=== PATIENT | male | born 1975 | race American Indian/Alaskan Native ===

== ENCOUNTER 2016-11-18 18:00 | Emergency (ER) | payer BC ==
[2016-11-18 19:06] LABS: Basophils % (Auto) 0.8 % (0.0-1.8); Eosinophils % (Auto) 2.5 % (0.0-4.3); Hematocrit 40.6 % (35.5-45.6); Mean Corpuscular HGB Conc 32 % (32-34); Mean Corpuscular Volume 77 fl (84-94); Platelet Count 201 K/mm3 (140-440); Red Cell Distribution Width 13.6 % (13.2-15.2); White Blood Count 6.5 K/mm3 (4.5-11.0)
[2016-11-18 19:16] LABS: Mean Corpuscular Hemoglobin 25 pg (28-32)
[2016-11-18 19:19] LABS: Bilirubin,Urine NEG (Negative); Blood,Urine NEG (Negative); Ketones,Urine NEG (Negative); Leukocyte Esterase,Urine NEG (Negative); Mucus,Urine FEW /HPF; Nitrite,Urine NEG (Negative); Protein,Urine <15 mg/dL mg/dL (Negative)
[2016-11-18 19:26] LABS: Alanine Aminotransferase 16 units/L (7-56); Albumin 4.1 g/dL (3.9-5); Albumin/Globulin Ratio 1.1 %; Alkaline Phosphatase 73 units/L (35-129); Anion Gap 16 mmol/L; BUN/Creatinine Ratio 9.28; Blood Urea Nitrogen 13 mg/dL (9-20); Carbon Dioxide 27 mmol/L (22-30); Chloride 100.7 mmol/L (98-107); Glucose 90 mg/dL (75-100); Lipase 29 units/L (13-60); Sodium 140 mmol/L (137-145); Total Protein 7.7 g/dL (6.3-8.2)
[2016-11-18] MEDS ORDERED: PEPCID PO ONE (22:03)
[2016-11-18] MEDS ORDERED: BENTYL IM ONE (22:03)
[2016-11-18] MEDS ORDERED: CARAFATE PO ONE (22:03)
[2016-11-18] MEDS ORDERED: ALUM-MAG HYDROX-SIMETH 200-200-20MG/5ML PO ONE (22:03)
--- NOTE | 2016-11-18 22:04 | Emergency Department Report ---
ED General Adult HPI - General Chief complaint: Abdominal Pain Stated complaint: ABD PAIN/BODY PAINS Time Seen by Provider: 11/18/16 21:52 Source: patient, family Mode of arrival: Ambulatory Limitations: No Limitations - History of Present Illness Initial comments: This is a 41-year-old male. He is previously unknown to me. His primary care doctor is Dr. Navneet Powers. He has a past medical history of hypertension. No history of abdominal surgeries. The patient presents to the ER with a complaint of left lower quadrant pain for one month. The pain does not radiate anywhere. There is no nausea, vomiting, diarrhea, irritative or obstructive urinary symptoms and there is no testicular pain. There is no hematemesis of bright red blood per rectum. This does not have any exacerbating or relieving factors. The patient also complains of diffuse myalgias, bilateral arms, legs, neck and back. This has been going on for months to years. This is not having exacerbating or relieving factors. There is no redness, pus or streaking, there is no recent travel within the past 2 months. Patient and family report going to multiple outpatient primary care physicians and specialists, and has been told that the patient's diagnostics workup had been negative in the past. Comes are not worsened today. There are no exacerbating or relieving factors. -: Gradual Location: back, abdomen, left, right, upper extremity, lower extremity Quality: aching Consistency: constant Improves with: none Worsens with: none Associated Symptoms: malaise, weakness. denies: chest pain, cough, diaphoresis , fever/chills, headaches - Related Data Previous Rx's Medication Instructions Recorded Last Taken Type Dicyclomine [Bentyl] 10 mg PO QID PRN #20 capsule 11/18/16 Unknown Rx Ondansetron [Zofran Odt] 4 mg PO QID PRN #20 tab.rapdis 11/18/16 Unknown Rx diphenhydrAMINE [Benadryl] 50 mg PO Q8HR PRN #20 capsule 11/18/16 Unknown Rx Allergies Allergy/AdvReac Type Severity Reaction Status Date / Time No Known Allergies Allergy Unverified 11/18/16 18:12 ED Review of Systems ROS: Stated complaint: ABD PAIN/BODY PAINS Other details as noted in HPI Constitutional: denies: fever Eyes: denies: vision change ENT: denies: epistaxis Respiratory: denies: cough, shortness of breath Cardiovascular: denies: chest pain Gastrointestinal: abdominal pain Genitourinary: denies: dysuria Musculoskeletal: back pain, arthralgia, myalgia Skin: denies: lesions Neurological: weakness Psychiatric: anxiety ED Past Medical Hx - Past Medical History Previous Medical History?: Yes Hx Hypertension: Yes - Surgical History Past Surgical History?: No - Social History Smoking Status: Never Smoker Substance Use Type: None - Medications Home Medications: Home Medications Medication Instructions Recorded Confirmed Last Taken Type Dicyclomine [Bentyl] 10 mg PO QID PRN #20 capsule 11/18/16 Unknown Rx Ondansetron [Zofran Odt] 4 mg PO QID PRN #20 tab.rapdis 11/18/16 Unknown Rx diphenhydrAMINE [Benadryl] 50 mg PO Q8HR PRN #20 capsule 11/18/16 Unknown Rx ED Physical Exam - General Limitations: No Limitations General appearance: alert, in no apparent distress - Head Head exam: Present: atraumatic, normocephalic - Eye Eye exam: Present: normal appearance, EOMI. Absent: nystagmus - ENT ENT exam: Present: normal exam, normal orophraynx, mucous membranes moist, normal external ear exam - Neck Neck exam: Present: normal inspection, full ROM. Absent: tenderness, meningismus - Respiratory Respiratory exam: Present: normal lung sounds bilaterally. Absent: respiratory distress, wheezes, rales, rhonchi, stridor, chest wall tenderness, accessory muscle use, decreased breath sounds, prolonged expiratory - Cardiovascular Cardiovascular Exam: Present: regular rate, normal rhythm, normal heart sounds. Absent: bradycardia, tachycardia, irregular rhythm, systolic murmur, diastolic murmur, rubs, gallop - GI/Abdominal GI/Abdominal exam: Present: soft, normal bowel sounds. Absent: distended, tenderness, guarding, rebound, rigid, pulsatile mass - Rectal Rectal exam: Present: deferred - Extremities Exam Extremities exam: Present: normal inspection, full ROM, normal capillary refill , other (the compartments are soft. There is full range of motion in the large major joints in the bilateral upper and lower extremities. There is no redness , pus or streaking, there is no crepitus, there are no obvious effusions noted) . Absent: tenderness, pedal edema, joint swelling, calf tenderness - Back Exam Back exam: Present: normal inspection, full ROM. Absent: tenderness, CVA tenderness (R), paraspinal tenderness, vertebral tenderness - Neurological Exam Neurological exam: Present: alert, oriented X3, normal gait, other (Extraocular movements intact. Tongue midline. No facial droop. Facial sensation intact to light touch in the V1, V2, V3 distribution bilaterally. 5 and 5 strength in 4 extremities.. Sensation is intact to light touch in 4 extremities.). Absent : motor sensory deficit - Psychiatric Psychiatric exam: Present: normal affect, normal mood - Skin Skin exam: Present: warm, dry, intact, normal color. Absent: rash ED Course Vital Signs 11/18/16 11/18/16 11/18/16 18:12 22:57 23:13 Temperature 98.4 F Pulse Rate 64 47 L Respiratory 18 16 18 Rate Blood Pressure 164/100 Blood Pressure 152/91 [Left] O2 Sat by Pulse 99 100 100 Oximetry ED Medical Decision Making - Lab Data Result diagrams: 11/18/16 18:55 11/18/16 18:55 Vital Signs 11/18/16 18:12 Temperature 98.4 F Pulse Rate 64 Respiratory 18 Rate Blood Pressure 164/100 O2 Sat by Pulse 99 Oximetry Lab Results 11/18/16 11/18/16 11/18/16 Range/Units 18:30 18:55 18:55 WBC 6.5 (4.5-11.0) K/mm3 RBC 5.30 H (3.65-5.03) M/mm3 Hgb 13.0 (11.8-15.2) gm/dl Hct 40.6 (35.5-45.6) % MCV 77 L (84-94) fl MCH 25 L (28-32) pg MCHC 32 (32-34) % RDW 13.6 (13.2-15.2) % Plt Count 201 (140-440) K/mm3 Lymph % (Auto) 38.2 H (13.4-35.0) % [place] % (Auto) 8.7 H (0.0-7.3) % Eos % (Auto) 2.5 (0.0-4.3) % Baso % (Auto) 0.8 (0.0-1.8) % Lymph # 2.5 (1.2-5.4) K/mm3 [place] # 0.6 (0.0-0.8) K/mm3 Eos # 0.2 (0.0-0.4) K/mm3 Baso # 0.0 (0.0-0.1) K/mm3 Seg Neutrophils % 49.8 (40.0-70.0) % Seg Neutrophils # 3.2 (1.8-7.7) K/mm3 Sodium 140 (137-145) mmol/L Potassium 4.0 (3.6-5.0) mmol/L Chloride 100.7 (98-107) mmol/L Carbon Dioxide 27 (22-30) mmol/L Anion Gap 16 mmol/L BUN 13 (9-20) mg/dL Creatinine 1.4 (0.8-1.5) mg/dL Estimated GFR > 60 ml/min BUN/Creatinine Ratio 9.28 % Glucose 90 (75-100) mg/dL Calcium 9.0 (8.4-10.2) mg/dL Phosphorus (2.5-4.5) mg/dL Magnesium (1.7-2.3) mg/dL Total Bilirubin 0.50 (0.1-1.2) mg/dL AST 19 (5-40) units/L ALT 16 (7-56) units/L Alkaline Phosphatase 73 (35-129) units/L Total Creatine Kinase (55-170) units/L Total Protein 7.7 (6.3-8.2) g/dL Albumin 4.1 (3.9-5) g/dL Albumin/Globulin Ratio 1.1 % Lipase 29 (13-60) units/L Urine Color Yellow (Yellow) Urine Turbidity Clear (Clear) Urine pH 5.0 (5.0-7.0) Ur Specific [place] 1.018 (1.003-1.030) Urine Protein <15 mg/dl (Negative) mg/dL Urine Glucose (UA) Neg (Negative) mg/dL Urine Ketones Neg (Negative) mg/dL Urine Blood Neg (Negative) Urine Nitrite Neg (Negative) Urine Bilirubin Neg (Negative) Urine Urobilinogen 2.0 (<2.0) mg/dL Ur Leukocyte Esterase Neg (Negative) Urine WBC (Auto) 1.0 (0.0-6.0) /HPF Urine RBC (Auto) 1.0 (0.0-6.0) /HPF Urine Mucus Few /HPF // Range/Units 22:04 WBC (4.5-11.0) K/mm3 RBC (3.65-5.03) M/mm3 Hgb (11.8-15.2) gm/dl Hct (35.5-45.6) % MCV (84-94) fl MCH (28-32) pg MCHC (32-34) % RDW (13.2-15.2) % Plt Count (140-440) K/mm3 Lymph % (Auto) (13.4-35.0) % [place] % (Auto) (0.0-7.3) % Eos % (Auto) (0.0-4.3) % Baso % (Auto) (0.0-1.8) % Lymph # (1.2-5.4) K/mm3 [place] # (0.0-0.8) K/mm3 Eos # (0.0-0.4) K/mm3 Baso # (0.0-0.1) K/mm3 Seg Neutrophils % (40.0-70.0) % Seg Neutrophils # (1.8-7.7) K/mm3 Sodium (137-145) mmol/L Potassium (3.6-5.0) mmol/L Chloride (98-107) mmol/L Carbon Dioxide (22-30) mmol/L Anion Gap mmol/L BUN (9-20) mg/dL Creatinine (0.8-1.5) mg/dL Estimated GFR ml/min BUN/Creatinine Ratio % Glucose (75-100) mg/dL Calcium (8.4-10.2) mg/dL Phosphorus 4.40 (2.5-4.5) mg/dL Magnesium 2.00 (1.7-2.3) mg/dL Total Bilirubin (0.1-1.2) mg/dL AST (5-40) units/L ALT (7-56) units/L Alkaline Phosphatase (35-129) units/L Total Creatine Kinase 338 H (55-170) units/L Total Protein (6.3-8.2) g/dL Albumin (3.9-5) g/dL Albumin/Globulin Ratio % Lipase (13-60) units/L Urine Color (Yellow) Urine Turbidity (Clear) Urine pH (5.0-7.0) Ur Specific [place] (1.003-1.030) Urine Protein (Negative) mg/dL Urine Glucose (UA) (Negative) mg/dL Urine Ketones (Negative) mg/dL Urine Blood (Negative) Urine Nitrite (Negative) Urine Bilirubin (Negative) Urine Urobilinogen (<2.0) mg/dL Ur Leukocyte Esterase (Negative) Urine WBC (Auto) (0.0-6.0) /HPF Urine RBC (Auto) (0.0-6.0) /HPF Urine Mucus /HPF - Medical Decision Making Differential diagnosis: Fibromyalgia, polymyositis, dermatomyositis, hepatitis, Lyme disease, constipation, irritable bowel syndrome, inflammatory bowel disease , functional abdominal pain Assessment and plan: 41-year-old male with abdominal pain and nonspecific myalgias. The symptoms have been going on for weeks to months. He is afebrile , with reassuring vital signs, with the exception of hypertension. His abdominal exam is completely benign, and based on his current history and physical, I do not believe the patient requires emergent advanced imaging at this time. I specifically discussed this with the patient and his , who is a nurse in this department, and I informed him that I did not feel the patient requires CT scan or emergent imaging at this time, especially given the risks of cancer, radiation, malignancy. Patient have verbalized understanding. I did instruct him to follow up with outpatient planer operator / grader and senior coldfusion developer. I believe his workup for his nonspecific myalgias does not represent an emergent conditions and has been present for months, he does not appear to be clinically decompensated, and I will defer further workup and evaluation to outpatient primary care doctor or senior coldfusion developer. Similar logic applies to his nonspecific abdominal pain. He was able to tolerate liquid feeds , and felt somewhat improved after symptomatic therapy. Critical care attestation.: If time is entered above; I have spent that time in minutes in the direct care of this critically ill patient, excluding procedure time. ED Disposition Clinical Impression: Myalgia, Abdominal pain Disposition: DC-01 TO HOME OR SELFCARE Is pt being admited?: No Does the pt Need Aspirin: No Condition: Stable Instructions: Musculoskeletal Pain (ED) Additional Instructions: Take the pain medication, nausea medication as directed. Follow up with an outpatient planer operator / grader within the next month. Follow up with an outpatient primary care doctor or senior coldfusion developer within the next month. [facility] as a patient service hotline that can be contacted to obtain expedited follow-up: [phone] ([phone]) Please return to the ER right away with new pain, worsened pain, migration of pain, fevers, chills, confusion, intractable nausea or vomiting, inability to tolerate liquid feeds. Please note that blood pressure was elevated, and this should be followed up by primary care doctor within the recommended timeframe. Long-term complications of hypertension and elevated blood pressure includes stroke, heart attack, disability, , paralysis, loss of quality of life. Prescriptions: Dicyclomine [Bentyl] 10 mg PO QID PRN #20 capsule PRN Reason: Pain diphenhydrAMINE [Benadryl] 50 mg PO Q8HR PRN #20 capsule PRN Reason: Allergic Reaction Ondansetron [Zofran Odt] 4 mg PO QID PRN #20 tab.rapdis PRN Reason: Nausea Referrals: PRIMARY CARE, [Referring] - 3-5 Days NAVNEET POWERS MD [Primary Care Provider] - 3-5 Days CRISTELA ESTRADA MD [Staff Physician] - 3-5 Days Forms: Work/School Release Form(ED)
[2016-11-18 22:29] LABS: Phosphorous 4.4 mg/dL (2.5-4.5)
[2016-11-18 22:57] VITALS: BP 152/91
== END 2016-11-18 23:45 | disposition home or self-care (01) ==
LOC: ED 18:00
DX: R10.32 Left lower quadrant pain (principal); M79.1 Myalgia; M79.605 Pain in left leg; M79.604 Pain in right leg; M79.642 Pain in left hand; M79.641 Pain in right hand; I10 Essential (primary) hypertension
CPT/HCPCS: 36415; 80053; 81001; 82550; 83690; 83735; 84100; 85025; 96372; 99283; J0500

== ENCOUNTER 2017-04-06 08:02 | Emergency (ER) | payer OTHER, BC ==
[2017-04-06 08:23] VITALS: BP 150/94
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
[2017-04-06] MEDS ORDERED: ZOFRAN ONE (09:18)
[2017-04-06] MEDS ORDERED: MORPHINE ONE (09:19)
[2017-04-06] MEDS ORDERED: MORPHINE IV ONE (09:21)
[2017-04-06] MEDS ORDERED: ZOFRAN IV ONE (09:22)
[2017-04-06 09:48] LABS: Bacteria,Urine 1+ /HPF (Negative); Bilirubin,Urine NEG (Negative); Blood,Urine NEG (Negative); Color,Urine Straw (Yellow); Nitrite,Urine NEG (Negative); Protein,Urine <15 mg/dL mg/dL (Negative); Urobilinogen,Urine < 2.0 mg/dL (<2.0); WBC,Urine < 1.0 /HPF (0.0-6.0)
[2017-04-06 09:58] LABS: Basophils % (Auto) 0.4 % (0.0-1.8); Eosinophils # (Auto) 0.1 K/mm3 (0.0-0.4); Eosinophils % (Auto) 2.2 % (0.0-4.3); Lymphocytes # (Auto) 1.8 K/mm3 (1.2-5.4); Lymphocytes % (Auto) 37.6 % (13.4-35.0); Mean Corpuscular HGB Conc 31 % (32-34); Mean Corpuscular Volume 78 fl (84-94); Monocytes # (Auto) 0.6 K/mm3 (0.0-0.8); Platelet Count 215 K/mm3 (140-440); Red Blood Count 5.04 M/mm3 (3.65-5.03); Red Cell Distribution Width 13.1 % (13.2-15.2)
[2017-04-06 09:59] LABS: Hematocrit 39.3 % (35.5-45.6); Hemoglobin 12.1 gm/dl (11.8-15.2); Mean Corpuscular Hemoglobin 24 pg (28-32)
[2017-04-06 10:16] LABS: Alanine Aminotransferase 19 units/L (7-56); Albumin 3.9 g/dL (3.9-5); BUN/Creatinine Ratio 8; Blood Urea Nitrogen 9 mg/dL (9-20); Calcium 9.2 mg/dL (8.4-10.2); Hemolysis Index 8
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
== END 2017-04-06 13:20 | disposition home or self-care (01) ==
LOC: ED 08:02
DX: S13.9XXA Sprain of joints and ligaments of unspecified parts of neck, initial encounter (principal); R10.9 Unspecified abdominal pain; S09.90XA Unspecified injury of head, initial encounter; I10 Essential (primary) hypertension; V89.2XXA Person injured in unspecified motor-vehicle accident, traffic, initial encounter; Y93.89 Activity, other specified; Y92.89 Other specified places as the place of occurrence of the external cause; Y99.8 Other external cause status
CPT/HCPCS: 36415; 70450; 72125; 74177; 80053; 81001; 85025; 96374; 96375; 99284; J2270; J2405; Q9967

== ENCOUNTER 2017-12-16 17:33 | Emergency (ER) | payer BC ==
[2017-12-16] MEDS ORDERED: MORPHINE IV ONE (18:22)
[2017-12-16] MEDS ORDERED: ZOFRAN IV ONE (18:22)
--- NOTE | 2017-12-16 18:29 | Emergency Department Report ---
ED Abdominal Pain HPI - General Chief Complaint: Abdominal Pain Stated Complaint: ABD PAIN/NAUSEA/VOMITING Time Seen by Provider: 12/16/17 18:14 Source: patient Mode of arrival: Ambulatory Limitations: No Limitations - History of Present Illness Initial Comments: Patient is 42 years old male with no significant past medical history except for hypertension. Patient presented to the ER 1 month history of left upper quadrant and left lower quadrants abdominal pain and left flank pain, on and off , sharp in nature. Patient stated that his pain just got worse in the last few days. Patient denied any fever, nausea or vomiting. Patient stated that he has urinary frequency and hematuria but no dysuria. MD Complaint: abdominal pain Location: LUQ, LLQ, L flank Radiation: none Migration to: no migration Severity: moderate Severity scale (0 -10): 5 Associated Symptoms: denies other symptoms - Related Data Previous Rx's Medication Instructions Recorded Last Taken Type Dicyclomine [Bentyl] 10 mg PO QID PRN #20 capsule 11/18/16 Unknown Rx Ondansetron [Zofran Odt] 4 mg PO QID PRN #20 tab.rapdis 11/18/16 Unknown Rx diphenhydrAMINE [Benadryl] 50 mg PO Q8HR PRN #20 capsule 11/18/16 Unknown Rx Metaxalone [Skelaxin] 800 mg PO TID #30 tablet 04/06/17 Unknown Rx Naproxen [Naprosyn] 500 mg PO BID #14 tablet 04/06/17 Unknown Rx Ciprofloxacin HCl [Ciprofloxacin 500 mg PO Q12H #14 tab 12/16/17 Unknown Rx TAB] Ondansetron [Zofran Odt] 4 mg PO Q8HR PRN #14 tab.rapdis 12/16/17 Unknown Rx amLODIPine [Norvasc] 5 mg PO DAILY #30 tab 12/16/17 Unknown Rx hydroCHLOROthiazide [HCTZ] 25 mg PO QDAY #30 tablet 12/16/17 Unknown Rx traMADol [Ultram 50 MG tab] 50 mg PO Q4HR PRN #14 tablet 12/16/17 Unknown Rx Allergies Allergy/AdvReac Type Severity Reaction Status Date / Time No Known Allergies Allergy Unverified 11/18/16 18:12 ED Review of Systems ROS: Stated complaint: ABD PAIN/NAUSEA/VOMITING Other details as noted in HPI Comment: All other systems reviewed and negative Constitutional: denies: chills, fever Respiratory: denies: cough, orthopnea, shortness of breath, SOB with exertion Cardiovascular: denies: chest pain, palpitations, dyspnea on exertion Endocrine: denies: flushing, intolerance to cold, intolerance to heat Gastrointestinal: abdominal pain. denies: nausea, vomiting, diarrhea, constipation, hematemesis, melena, hematochezia Genitourinary: frequency, hematuria Neurological: denies: headache, weakness, numbness, paresthesias, confusion, abnormal gait ED Past Medical Hx - Past Medical History Hx Hypertension: Yes - Social History Smoking Status: Never Smoker Substance Use Type: None - Medications Home Medications: Home Medications Medication Instructions Recorded Confirmed Last Taken Type Dicyclomine [Bentyl] 10 mg PO QID PRN #20 capsule 11/18/16 Unknown Rx Ondansetron [Zofran Odt] 4 mg PO QID PRN #20 tab.rapdis 11/18/16 Unknown Rx diphenhydrAMINE [Benadryl] 50 mg PO Q8HR PRN #20 capsule 11/18/16 Unknown Rx Metaxalone [Skelaxin] 800 mg PO TID #30 tablet 04/06/17 Unknown Rx Naproxen [Naprosyn] 500 mg PO BID #14 tablet 04/06/17 Unknown Rx Ciprofloxacin HCl [Ciprofloxacin 500 mg PO Q12H #14 tab 12/16/17 Unknown Rx TAB] Ondansetron [Zofran Odt] 4 mg PO Q8HR PRN #14 tab.rapdis 12/16/17 Unknown Rx amLODIPine [Norvasc] 5 mg PO DAILY #30 tab 12/16/17 Unknown Rx hydroCHLOROthiazide [HCTZ] 25 mg PO QDAY #30 tablet 12/16/17 Unknown Rx traMADol [Ultram 50 MG tab] 50 mg PO Q4HR PRN #14 tablet 12/16/17 Unknown Rx ED Physical Exam - General Limitations: No Limitations General appearance: alert, in no apparent distress - Head Head exam: Present: atraumatic, normocephalic, normal inspection - Eye Eye exam: Present: normal appearance, PERRL - ENT ENT exam: Present: normal exam, normal orophraynx, mucous membranes moist - Neck Neck exam: Present: normal inspection, full ROM. Absent: tenderness, meningismus, lymphadenopathy, thyromegaly - Respiratory Respiratory exam: Present: normal lung sounds bilaterally. Absent: respiratory distress, wheezes, rales, rhonchi, stridor, chest wall tenderness, accessory muscle use, decreased breath sounds, prolonged expiratory - Cardiovascular Cardiovascular Exam: Present: regular rate, normal rhythm, normal heart sounds - GI/Abdominal GI/Abdominal exam: Present: soft, tenderness, normal bowel sounds. Absent: distended, guarding, rebound, rigid, diminished bowel sounds, organomegaly, mass , bruit, pulsatile mass, hernia - Extremities Exam Extremities exam: Present: normal inspection, full ROM, normal capillary refill - Back Exam Back exam: Present: normal inspection, full ROM. Absent: CVA tenderness (R), CVA tenderness (L), muscle spasm, paraspinal tenderness, vertebral tenderness, rash noted - Neurological Exam Neurological exam: Present: alert, oriented X3, CN II-XII intact, normal gait, reflexes normal - Skin Skin exam: Present: warm, intact, normal color ED Course Vital Signs 12/16/17 12/16/17 12/16/17 18:04 19:28 20:12 Temperature 99.1 F 98.2 F Pulse Rate 70 63 62 Respiratory 18 14 Rate Blood Pressure 163/102 164/97 Blood Pressure 164/97 [Left] O2 Sat by Pulse 99 98 Oximetry 12/16/17 21:00 Temperature Pulse Rate Respiratory Rate Blood Pressure Blood Pressure 150/95 [Left] O2 Sat by Pulse Oximetry ED Medical Decision Making - Lab Data Result diagrams: 12/16/17 18:31 12/16/17 20:12 - Radiology Data Radiology results: report reviewed Referring Physician: SUSAN MCPHERSON Patient Name: MARCIANO HOOK Date of : 1975 Sex: Male Report Date: 2017-12-16 Report Status: Finalized Findings [facility] [address] [place] [address] Cat Scan Report Signed Patient: MARCIANO HOOK MR#: [id number] : 1975 Acct:[id number] Age/Sex: 42 / M ADM Date: 12/16/17 Loc: ED Attending Dr: Ordering Physician: SUSAN MCPHERSON Date of Service: 12/16/17 Procedure(s): CT abdomen pelvis w con Accession Number(s): [id number] cc: RODRIRODY HairDeidra MCPHERSON FINAL REPORT EXAM: CT ABDOMEN PELVIS W CON HISTORY: Abdominal Pain TECHNIQUE: Following administration of IV contrast axial helical imaging was performed through the abdomen and pelvis with sagittal and coronal reformatted images obtained. Comparison: None FINDINGS: The lung bases are without infiltrate, pneumothorax or pleural fluid collection. There is dependent atelectasis in both lung bases. The heart is enlarged. There is a calcification in the left lobe of the liver. Probable calcified granuloma. The spleen, pancreas and adrenal glands are unremarkable in appearance. The gallbladder is moderately distended and unremarkable in appearance. There is a small nonobstructing stone in the right renal pelvis. There appears to be a small scar in the right renal cortex. The kidneys are otherwise unremarkable. There is no evidence of hydronephrosis nor hydroureter. The bowel is normal caliber. There is colonic diverticulosis without radiographic evidence of diverticulitis. The appendix is normal caliber. There is no evidence of pneumoperitoneum or free fluid. The abdominal aorta is normal caliber. There is atherosclerotic vascular calcification of the large and medium caliber arteries. There is no evidence of pathologic intra-abdominal adenopathy by CT size criteria. The urinary bladder is mildly distended. There is the appearance of increased thickness of the urinary bladder wall. This may be secondary to under distention. The prostate gland appears to be enlarged with maximal axial dimension of 4.7 centimeters. There is a small right inguinal hernia that contains fat. The bony structures are notable for spondylitic change of the lumbar spine. There is a small umbilical hernia that contains fat. IMPRESSION: 1. No evidence of an acute intra-abdominal process. 2. Cardiomegaly. 3. Probable calcified granuloma left lobe of the liver. 4. Nonobstructing stone right renal pelvis. 5. Colonic diverticulosis without radiographic evidence of diverticulitis. 6. Atherosclerotic vascular calcification large and medium caliber arteries. 7. Appearance of increased thickness of the urinary bladder wall. This may be secondary to under distention. However, this can be seen in patients with cystitis and bladder outlet obstruction. 8. Mildly enlarged prostate gland. 9. Spondylitic change lumbar spine. 10. Small right inguinal hernia and small umbilical hernia that contains fat. Transcribed By: ED Dictated By: ISAEL LEI MD Electronically Authenticated By: ISAEL LEI MD Signed Date/Time: 12/16/171946 DD/ 46 TD/TT: 12/16/171946 - Medical Decision Making Patient stated that he is feeling much better. He'll follow by the CT abdomen and pelvis results. Patient blood pressure is 173/96, patient stated that he was taking hydrochlorothiazide but his doctor discontinued the medication. Patient is given clonidine here and I will rewrite hydrochlorothiazide and I will add Norvasc 5 mg. I advised patient to follow HIS primary care physician in the next 2-3 days and to return to the ER if his symptoms are not improving. Critical care attestation.: If time is entered above; I have spent that time in minutes in the direct care of this critically ill patient, excluding procedure time. ED Disposition Clinical Impression: Abdominal pain, Cystitis, Malignant hypertension Disposition: TO HOME OR SELFCARE Is pt being admited?: No Condition: Stable Instructions: Urinary Tract Infection in Men (ED), Abdominal Pain (ED), Hypertension (ED) Prescriptions: amLODIPine [Norvasc] 5 mg PO DAILY #30 tab Ciprofloxacin HCl [Ciprofloxacin TAB] 500 mg PO Q12H #14 tab hydroCHLOROthiazide [HCTZ] 25 mg PO QDAY #30 tablet Ondansetron [Zofran Odt] 4 mg PO Q8HR PRN #14 tab.rapdis PRN Reason: Nausea And Vomiting traMADol [Ultram 50 MG tab] 50 mg PO Q4HR PRN #14 tablet PRN Reason: Pain Referrals: PRIMARY CARE, [Primary Care Provider] - 3-5 Days Forms: Work/School Release Form(ED)
[2017-12-16 18:40] LABS: Basophils # (Auto) 0.1 K/mm3 (0.0-0.1); Basophils % (Auto) 0.8 % (0.0-1.8); Eosinophils # (Auto) 0.2 K/mm3 (0.0-0.4); Eosinophils % (Auto) 3.3 % (0.0-4.3); Hematocrit 40.8 % (35.5-45.6); Hemoglobin 13.4 gm/dl (11.8-15.2); Lymphocytes # (Auto) 2.3 K/mm3 (1.2-5.4); Lymphocytes % (Auto) 33.4 % (13.4-35.0); Mean Corpuscular HGB Conc 33 % (32-34); Mean Corpuscular Volume 79 fl (84-94); Monocytes # (Auto) 0.6 K/mm3 (0.0-0.8); Monocytes % (Auto) 8.8 % (0.0-7.3); Platelet Count 216 K/mm3 (140-440); Red Blood Count 5.17 M/mm3 (3.65-5.03); Red Cell Distribution Width 13.1 % (13.2-15.2)
[2017-12-16 18:54] LABS: Mean Corpuscular Hemoglobin 26 pg (28-32)
[2017-12-16 19:01] LABS: Albumin 4.3 g/dL (3.9-5); BUN/Creatinine Ratio 8; Blood Urea Nitrogen 11 mg/dL (9-20); Calcium 9.5 mg/dL (8.4-10.2); Hemolysis Index 358; Lipase 30 units/L (13-60)
[2017-12-16 19:19] LABS: Alanine Aminotransferase 26 units/L (7-56); Bilirubin,Direct 0.2 mg/dL (0-0.2)
[2017-12-16 19:27] LABS: Bilirubin,Urine NEG (Negative); Blood,Urine NEG (Negative); Color,Urine Yellow (Yellow); Mucus,Urine 2+ /HPF; Protein,Urine <15 mg/dL mg/dL (Negative)
--- NOTE | 2017-12-16 19:48 | Cat Scan Report ---
FINAL REPORT EXAM: CT ABDOMEN PELVIS W CON HISTORY: Abdominal Pain TECHNIQUE: Following administration of IV contrast axial helical imaging was performed through the abdomen and pelvis with sagittal and coronal reformatted images obtained. Comparison: None FINDINGS: The lung bases are without infiltrate, pneumothorax or pleural fluid collection. There is dependent atelectasis in both lung bases. The heart is enlarged. There is a calcification in the left lobe of the liver. Probable calcified granuloma. The spleen, pancreas and adrenal glands are unremarkable in appearance. The gallbladder is moderately distended and unremarkable in appearance. There is a small nonobstructing stone in the right renal pelvis. There appears to be a small scar in the right renal cortex. The kidneys are otherwise unremarkable. There is no evidence of hydronephrosis nor hydroureter. The bowel is normal caliber. There is colonic diverticulosis without radiographic evidence of diverticulitis. The appendix is normal caliber. There is no evidence of pneumoperitoneum or free fluid. The abdominal aorta is normal caliber. There is atherosclerotic vascular calcification of the large and medium caliber arteries. There is no evidence of pathologic intra-abdominal adenopathy by CT size criteria. The urinary bladder is mildly distended. There is the appearance of increased thickness of the urinary bladder wall. This may be secondary to under distention. The prostate gland appears to be enlarged with maximal axial dimension of 4.7 centimeters. There is a small right inguinal hernia that contains fat. The bony structures are notable for spondylitic change of the lumbar spine. There is a small umbilical hernia that contains fat. IMPRESSION: 1. No evidence of an acute intra-abdominal process. 2. Cardiomegaly. 3. Probable calcified granuloma left lobe of the liver. 4. Nonobstructing stone right renal pelvis. 5. Colonic diverticulosis without radiographic evidence of diverticulitis. 6. Atherosclerotic vascular calcification large and medium caliber arteries. 7. Appearance of increased thickness of the urinary bladder wall. This may be secondary to under distention. However, this can be seen in patients with cystitis and bladder outlet obstruction. 8. Mildly enlarged prostate gland. 9. Spondylitic change lumbar spine. 10. Small right inguinal hernia and small umbilical hernia that contains fat.
[2017-12-16] MEDS ORDERED: CATAPRES PO ONE (19:59)
[2017-12-16 21:25] VITALS: BP 150/95
== END 2017-12-16 21:03 | disposition home or self-care (01) ==
LOC: ED 17:33
DX: N30.90 Cystitis, unspecified without hematuria (principal); I10 Essential (primary) hypertension
CPT/HCPCS: 36415; 74177; 80048; 80074; 81001; 82150; 83690; 84132; 84484; 85025; 93005; 93010; 96374; 96375; 99284; J2270; J2405; Q9967